=== PATIENT | female | born 1960 | race African-American/Black ===

== ENCOUNTER 2016-09-29 09:01 | Observation (INO) ==
[2016-09-29] MEDS ORDERED: ASPIRIN 325 MG TABLET PO STA (09:44)
--- NOTE | 2016-09-29 09:46 | EKG Report ---
Stationary ECG Study [facility] ER Test Date: 09/29/2016 9:09:08 AM Pat Name: BERTHA GRIDER Department: Room: Gender: F Medication Technician: Lindsey Dalton : 1960 Requested by: Felix Morrison Order Number: [id number] Reading MD: EVELIN WEST Intervals [place] Rate: 60 P: 48 ME: 191 QRS: 47 QRSD: 85 T: 43 QT: 415 QTc: 415 Interpretive Statements SINUS RHYTHM Electronically Signed On 10-01-16 16:32:28 CDT by EVELIN WEST [email or web address]
[2016-09-29 09:51] LABS: Basophils % 0.6 % (0.0-0.8); Eosinophils % 1.1 % (0.00-10.9); Hematocrit 42.4 VOL% (35.7-47.0); Hemoglobin 13.9 GM/DL (12.0-16.0); Lymphocytes # 1.7 10*3/uL (1.4-4.0); Lymphocytes % 47.4 % (21.3-54.2); Mean Corpuscular HGB Conc 32.8 GM/DL (32-36); Mean Corpuscular Hemoglobin 28 PG (27-34); Mean Corpuscular Volume 86.2 FL (87-102); Mean Platelet Volume 10.2 FL (9.6-12.0); Monocytes # 0.4 10*3/uL (0.11-0.8); Monocytes % 11.9 % (1.7-12.7); Neutrophils # 1.4 10*3/uL (1.4-7.4); Platelet Count 368 T/CUMM (130-400); Red Blood Count 4.92 MC/CUMM (3.8-5.5); Red Cell Distribution Width 13.5 % (9.3-17.3); White Blood Count 3.5 T/CUMM (4-12)
[2016-09-29] MEDS ORDERED: ASPIRIN 325 MG TABLET ONE (09:55)
[2016-09-29] MEDS ORDERED: NITROGLYCERIN SL 0.4 MG TABLET SL ONE ×3 (10:02→10:22)
[2016-09-29] MEDS: NITROGLYCERIN SL 0.4 MG TABLET SL PRN ×3 (10:06→10:23)
[2016-09-29 10:10] LABS: Calcium 10.9 MG/DL (8.5-10.1); Osmolality,Calculated 271.8 MOS/KG (273-304); Potassium 3.8 MMOL/L (3.5-5.1)
--- NOTE | 2016-09-29 10:38 | XRay Report ---
XR chest 1V portable Indication: Chest pain. Chest one view: No comparison. Heart size and mediastinal contour are normal. Lungs are hypoinflated but generally clear, except for minimal bibasilar atelectasis. Pleural spaces are clear. Bones are intact. Impression: Mild pulmonary hypoinflation with atelectasis. PROCEDURE INTERPRETED AT [facility] DEPARTMENT OF RADIOLOGY Final Report Signed by: Xavier Larson M.D.
--- NOTE | 2016-09-29 10:57 | EKG Report ---
Stationary ECG Study [facility] ER Test Date: 09/29/2016 10:55:32 AM Pat Name: BERTHA GRIDER Department: Room: Gender: F Fingernail Technician: : 1960 Requested by: Felix Morrison Order Number: [id number] Reading MD: EVELIN WEST Intervals [place] Rate: 61 P: 30 CA: 194 QRS: 54 QRSD: 83 T: 20 QT: 439 QTc: 442 Interpretive Statements SINUS RHYTHM ST DEVIATION AND MODERATE T-WAVE ABNORMALITY Electronically Signed On 10-01-16 16:33:19 CDT by EVELIN WEST [email or web address]
[2016-09-29] MEDS ORDERED: ENOXAPARIN 100 MG/ML SYRINGE SUBCUT STA (11:03)
[2016-09-29] MEDS ORDERED: ENOXAPARIN 100 MG/ML SYRINGE SUBCUT ONE (11:04)
--- NOTE | 2016-09-29 11:06 | Emergency Department Note ---
Mickey Dugan Brittany, am scribing for, and in the presence of, Abraham Aguirre MD 09:40. Timothy Dugan Doug C, MD, personally performed the services described in this documentation, ascribed by Kerry Arevalo in my presence, and it is both accurate and complete . Arrival - Arrival Chief Complaint: Chest Pain Stated Complaint: chest pain ED Nursing Triage Note: Pt c/o Chest pain, SOB, nausea, cough, sinus drainage, and horsness since yesterday. Mode of Arrival: Ambulatory Limitations: No Limitations Source: Patient, RN Notes Reviewed - History of Present Illness HPI Narrative: Patient 56-year-old black female presents emergency room complaining of substernal chest pain that started 3:00 yesterday while taking her groceries into the house. Patient states the pain is a sharp right-sided chest pain is worse with movement. She does have some shortness of breath and nausea and slight diaphoresis but no vomiting. She denies any neck shoulder arm discomfort associated with this. She has no history of heart disease but does have a family history of coronary artery disease. She states the pain has been fairly constant since yesterday afternoon. Patient given 1 nitroglycerin in the emergency room which seem to control her discomfort. Onset (ago): day(s) (1) Consistency: constant Severity: moderate Severity scale (1-10): 7 Quality: stabbing, sharp Allergies/Adverse Reactions: Allergies Allergy/AdvReac Type Severity Reaction Status Date / Time No Known Allergies Allergy Verified 09/29/16 09:05 Review of System - Review of System 12 point system: reviewed and no additional remarkable complaints except as stated - Review of System Constitutional: Present: diaphoresis. Absent: chills, fever Eyes: Absent: vision change Head/Ears/Nose/Throat: Absent: nasal drainage, sore throat Respiratory: Present: respiratory distress Cardiovascular: Present: chest pain Gastrointestinal: Present: nausea. Absent: abdominal pain, vomiting, diarrhea, constipation Genitourinary female: Absent: dysuria, frequency, urgency Musculoskeletal: Absent: arm pain, back pain, leg pain, neck pain Skin: Absent: rash Neurological: Absent: headache Psychiatric: Absent: anxiety, depression Hematological/Lymphatic: Absent: easy bleeding, easy bruising Medical,Surgical,& Family Hx - Medical History Cardio: History of: Hypertension Endocrine: History of: Dyslipidemia, Thyroid Disorder (HYPO) - Surgical History Reproductive Surgeries: Surgical HX of;: Hysterectomy (Total Hysterectomy) Orthopedic Surgeries: Surgical HX of;: Orthopedic Surgery (Torn Rotator Cuff), Spinal Surgery (Neck Fusion) - Family History Family History: Reports;: Family Heart Disease (father, mother, brother), Family Hypertension - Social History Smoking Status: Never smoker Exam Vital Signs: Vital Signs Temperature 97.0 F L 09/29/16 09:07 Pulse Rate 59 L 09/29/16 10:00 Respiratory Rate 16 09/29/16 10:00 Blood Pressure 148/99 09/29/16 10:00 O2 Sat by Pulse Oximetry 100 09/29/16 10:00 - General General appearance: alert, in no apparent distress - Head Head exam: Present: atraumatic, normocephalic, normal inspection - Eye Eye exam: Present: normal appearance, PERRL, EOMI - ENT ENT exam: Present: normal exam, normal oropharynx, mucous membranes moist - Neck Neck exam: Present: normal inspection, full ROM, trachea midline - Chest Chest inspection: Present: normal inspection, symmetric chest wall rise. Absent : tenderness (no chest wall tenderness) - Respiratory Respiratory exam: Present: normal lung sounds bilaterally. Absent: rales, rhonchi, wheezes - Cardiovascular Cardiovascular exam: Present: regular rate, normal rhythm, normal heart sounds. Absent: murmur, rubs, gallop - Abdominal Exam Abdominal exam: Present: soft, normal bowel sounds. Absent: distention, tenderness - Extremities Exam Extremities exam: Present: normal inspection - Back Exam Back exam: Present: normal inspection - Neurological Exam Neurological exam: Present: alert, oriented X3, CN II-XII intact. Absent: motor sensory deficit - Psychiatric Psychiatric exam: Present: normal affect, normal mood - Skin Skin exam: Present: warm, dry, intact, normal color Course Course Narrative: Patient was pain-free after sublingual nitroglycerin. EKG was repeated which revealed persistent T-wave inversion in V1 through V4. I discussed patient with Kellen who is covering the hospitalist service. She will arrange patient be seen and admitted to the hospitalist service. Results - Labs CBC & BMP: 09/29/16 09:20 09/29/16 09:20 Lab Results: I have reviewed the patients labs Labs: Laboratory Tests 09/29/16 09:20 WBC 3.5 L RBC 4.92 Hgb 13.9 Hct 42.4 MCV 86.2 L MCH 28 MCHC 32.8 RDW 13.5 Plt Count 368 MPV 10.2 Neut % (Auto) 39.0 Lymph % (Auto) 47.4 Ward % (Auto) 11.9 Eos % (Auto) 1.1 Baso % (Auto) 0.6 Neut # (Auto) 1.4 Lymph # (Auto) 1.7 Ward # (Auto) 0.4 Eos # (Auto) 0.0 Baso # (Auto) 0.0 Immature Gran % 0.0 Nucleated RBC % 0.0 Immature Gran # 0.00 Nucleated RBCs # 0.00 Laboratory Tests 09/29/16 09/29/16 09/29/16 09:20 09:20 09:20 D-Dimer, Quantitative <= 0.5 Sodium 137 Potassium 3.8 Chloride 104 Carbon Dioxide 27 Anion Gap 9.8 BUN 11 Creatinine 1.00 GFR Calculation 88 BUN/Creatinine Ratio 11.00 Glucose 98 Calculated Osmolality 271.8 L Calcium 10.9 H Magnesium Troponin I < 0.015 09/29/16 09:20 D-Dimer, Quantitative Sodium Potassium Chloride Carbon Dioxide Anion Gap BUN Creatinine GFR Calculation BUN/Creatinine Ratio Glucose Calculated Osmolality Calcium Magnesium 2.6 H Troponin I - EKG EKG results: interpreted by ERMJe, sinus rhythm (60 bpm) - Impressions T-wave inversion V1 through V4 - Diagnostic Findings Procedure: Chest x-ray: report reviewed by me (Mild pulmonary hypoinflation with atelectasis.) Disposition Clinical Impression: Chest pain Case discussed with: patient, patient's family Disposition: Still a Patient Condition: Stable Time of Disposition: 11:05
--- NOTE | 2016-09-29 12:28 | Hospitalist History & Physical ---
Assessment and Plan - Time spent with patient Time spent with patient: Less than 30 minutes (1) Chest pain Status: Acute Assessment and plan: Improved. Relieved with nitroglycerin, aspirin and oxygen. Patient will be admitted to telemetry for observation and cardiac workup. Will trend cardiac enzymes and repeat labs in a.m. Current Visit: Yes (2) Hypertension Status: Acute Assessment and plan: 167/99. Patient currently takes triamterene. Will continue home medications and continue monitoring overnight. Consider adding a calcium channel jareth or SWAPNIL inhibitor. Current Visit: Yes (3) Hypothyroidism Status: Acute Assessment and plan: Patient is followed by Dr. Eddy as an outpatient. Currently on Synthroid. Will continue home meds. Current Visit: Yes History of Present Illness Chief complaint: Chest pain History of present illness: Ms. Swanson is a 56 year old female with risk factors significant for hypertension, hyperlipidemia, hypothyroidism who presents to the ED today with complaints of chest pain since yesterday. The patient describes his pain as a "sharp" pain in her left chest and does not radiate. She rates his pain as a 7/ 10. She says that the pain was relieved with nitroglycerin, aspirin and oxygen given in the ER. She denies headache, palpitations, near syncope, pain on inspiration. She does report a past episode of chest pain that was thought to be musculoskeletal in origin and relieved with muscle relaxants. This pain today, however, is not reproducible to palpation. EKG on admission shows sinus rhythm with abnormal ST and T-wave activity with possible anterior ischemia. Chest x-ray shows mild pulmonary hypoinflation with atelectasis. The patient does report a history of mild to moderate edema and shortness of breath both at rest and on exertion. She currently takes triamterene for hypertension. She is followed by Dr. Eddy at [facility]. Preliminary lab work is unremarkable with troponin > 0.015. She will be admitted to telemetry for observation and chest pain rule out. Home Medications Medication Instructions Recorded Confirmed Type Amitriptyline HCl [Amitriptyline 25 mg PO BEDTIME PRN 09/29/16 09/29/16 History HCl] Aspirin EC Tab 81 mg PO QAM 09/29/16 09/29/16 History Ergocalciferol (Vitamin D2) 50,000 unit PO TU 09/29/16 09/29/16 History [Vitamin D2] Estradiol [Estradiol Tab] 2 mg PO QAM 09/29/16 09/29/16 History Hydrocodone/Acetaminophen 1 tablet PO TID 09/29/16 09/29/16 History [Hydrocodon-Acetaminophn 10-325] Levothyroxine Tab [Synthroid Tab] 125 mcg PO DAILY@0700 09/29/16 09/29/16 History Lovastatin [Lovastatin] 20 mg PO QAM 09/29/16 09/29/16 History Meloxicam 15 mg PO QAM 09/29/16 09/29/16 History Tizanidine HCl [Tizanidine HCl] 2 mg PO QAM 09/29/16 09/29/16 History Triamterene/Hydrochlorothiazid 1 capsule PO QAM 09/29/16 09/29/16 History [Triamterene-Hctz 37.5-25 mg Cp] Allergies Allergy/AdvReac Type Severity Reaction Status Date / Time No Known Allergies Allergy Verified 09/29/16 09:05 Medical,Surgical,& Family Hx - Medical History Cardio: History of: Hypertension Endocrine: History of: Dyslipidemia, Thyroid Disorder (HYPO) - Surgical History Reproductive Surgeries: Surgical HX of;: Hysterectomy (Total Hysterectomy) Orthopedic Surgeries: Surgical HX of;: Orthopedic Surgery (Torn Rotator Cuff), Spinal Surgery (Neck Fusion) - Family History Family History: Reports;: Family Heart Disease (father, mother, brother), Family Hypertension - Social History Smoking Status: Never smoker Frequency of Alcohol Use: None Type of Drug Use: None Marital Status: Lives With:: Spouse Functional capacity: independent ambulation - Constitutional Constitutional: Absent: fatigue, fever(s), frequent falls, headache(s), lethargy , weakness - EENT Eyes: Absent: blurry vision, loss of vision Ears: Absent: decreased hearing, ear pain Nose, mouth and throat: Absent: dysphagia, headache(s), neck pain, sinus pressure - Cardiovascular Cardiovascular: Present: chest pain at rest, dyspnea, dyspnea on exertion, edema. Absent: radiating jaw, neck or arm pain, orthopnea, palpitations - Respiratory Respiratory: Present: dyspnea on exertion. Absent: cough, hemoptysis, wheezing - Gastrointestinal Gastrointestinal: Present: abdominal pain. Absent: change in bowel habits, constipation, diarrhea, nausea - Genitourinary Genitourinary: Absent: difficulty urinating, dysuria - Musculoskeletal Musculoskeletal: Absent: back pain, joint swelling, limited range of motion - Neurological Neurological: Absent: abnormal gait, abnormal speech, behavioral changes, dizziness, numbness - Psychiatric Psychiatric: Absent: anxiety, confusion, difficulty concentrating - Endocrine Endocrine: Present: cold intolerance. Absent: fatigue, heat intolerance - Hematologic/Lymphatic Hematologic/Lymphatic: Absent: easy bleeding, easy bruising Exam - Constitutional Vitals: Period Temp Pulse Resp BP Sys/Gould Pulse Ox Last 24 Hr 55-61 16-16 146-167/86-99 100-100 Exam: General appearance: normal weight, no acute distress - Head Head exam: Present: normocephalic, atraumatic - Eye Eye exam: Present: EOMI. Absent: conjunctival injection, nystagmus Pupils: Present: EHRB, normal accommodation - ENT ENT exam: Present: normal exam, normal external ear exam - Neck Neck exam: Present: normal inspection. Absent: lymphadenopathy, tenderness, thyromegaly - Respiratory Respiratory exam: Present: clear to auscultation bilaterally. Absent: rales, rhonchi, wheezes - Cardiovascular Cardiovascular exam: Present: regular rate and rhythm. Absent: carotid bruit, gallop, rubs - GI/Abdominal GI/Abdominal exam: Present: normal bowel sounds. Absent: ascites, distended, mass - Extremities Exam Extremities exam: Present: normal inspection, normal capillary refill. Absent: edema - Back Exam Back exam: Absent: CVA tenderness (L), CVA tenderness (R) - Neurological Exam Neurological exam: Present: alert, oriented X3 - Psychiatric Psychiatric exam: Present: normal affect, normal mood - Skin Skin exam: Present: normal color, warm, dry Results - Labs CBC & BMP: 09/29/16 09:20 09/29/16 09:20 Lab Results: I have reviewed the past 24 hour labs - EKG EKG results: interpreted by YANY, sinus rhythm - Diagnostic Findings Procedure: Chest x-ray: image reviewed by me, report reviewed by me (atelectasis )
[2016-09-29] MEDS ORDERED: ZALEPLON 5 MG CAPSULE PO PRN (12:42)
[2016-09-29] MEDS ORDERED: ACETAMINOPHEN 325 MG TABLET PO PRN (12:42)
[2016-09-29] MEDS ORDERED: ONDANSETRON 4 MG/2 ML VIAL IV PRN (12:42)
[2016-09-29] MEDS ORDERED: BISACODYL 5 MG TABLET PO PRN (12:42)
[2016-09-29] MEDS ORDERED: MORPHINE 2 MG/1 ML SYRINGE IV PRN (12:42)
[2016-09-29] MEDS ORDERED: MAGNESIUM HYDROXIDE SUSP 30 ML UDCUP PO PRN (12:42)
[2016-09-29] MEDS ORDERED: AMITRIPTYLINE 25 MG TABLET PO PRN (12:48)
--- NOTE | 2016-09-29 13:16 | EKG Report ---
Stationary ECG Study [facility] Test Date: 09/29/2016 1:16 PM Pat Name: BERTHA GRIDER Department: Room: 285 Gender: F Laboratory Aide: EMELIA : 1960 Requested by: Felix Morrison Order Number: [id number] Reading MD: EVELIN WEST Intervals [place] Rate: 53 P: 32 NE: 191 QRS: 28 QRSD: 87 T: 60 QT: 442 QTc: 426 Interpretive Statements SINUS BRADYCARDIA MODERATE T-WAVE ABNORMALITY Electronically Signed On 10-01-16 16:35:25 CDT by EVELIN WEST [id number]
[2016-09-29 13:53] LABS: Risk Ratio 3.38; VLDL CHOLESTEROL 15.8 MG/DL
--- NOTE | 2016-09-29 15:14 | EKG Report ---
Stationary ECG Study [facility] Test Date: 09/29/2016 3:13:39 PM Pat Name: BERTHA GRIDER Department: Room: 285 Gender: F Records Section Supervisor: EMELIA : 1960 Requested by: Felix Morrison Order Number: [id number] Reading MD: EVELIN WEST Intervals [place] Rate: 57 P: 36 ID: 200 QRS: 36 QRSD: 85 T: 28 QT: 432 QTc: 427 Interpretive Statements SINUS RHYTHM Electronically Signed On 10-01-16 16:39:02 CDT by EVELIN WEST [email or web address]
[2016-09-29] MEDS: ALUMINUM/MAGNES/SIMETH MAX STR 30 ML UDCUP PO SCH (21:16)
[2016-09-30] MEDS: ALUMINUM/MAGNES/SIMETH MAX STR 30 ML UDCUP PO SCH ×3 (00:46→08:18)
[2016-09-30 05:43] LABS: Blood Urea Nitrogen 11 MG/DL (7-18); Glucose 108 MG/DL (74-106); Magnesium 2.9 MG/DL (1.8-2.4); Osmolality,Calculated 282.1 MOS/KG (273-304); Sodium 142 MMOL/L (136-145); Troponin I Only < 0.015 NG/ML (0.00-0.045)
[2016-09-30] MEDS: LEVOTHYROXINE 125 MCG TABLET PO SCH (06:08)
[2016-09-30] MEDS: ASPIRIN EC 325 MG TABLET PO SCH (08:19)
[2016-09-30] MEDS: TRIAMTERENE/HCTZ 37.5-25 MG CAPSULE PO SCH (08:25)
[2016-09-30] MEDS: MELOXICAM 7.5 MG TABLET PO SCH (08:25)
[2016-09-30] MEDS: ESTRADIOL 2 MG TABLET PO SCH (08:26)
[2016-09-30] MEDS: tiZANidine 4 MG TABLET PO SCH (08:26)
[2016-09-30] MEDS ORDERED: LOVASTATIN 20 MG TABLET PO SCH (09:00)
[2016-09-30] MEDS: METOPROLOL TARTRATE 25 MG TABLET PO SCH ×2 (13:00→21:31)
[2016-09-30] MEDS ORDERED: POTASSIUM CHLORIDE RIDER 10 MEQ in PREMIX 1 EACH IV PRN ×2 (13:01→17:37)
[2016-09-30] MEDS ORDERED: MAGNESIUM SULF RIDER 2 GM in PREMIX 1 EACH IV PRN ×2 (13:01→17:37)
--- NOTE | 2016-09-30 13:05 | Cardiology Consult Note ---
Assessment and Plan (1) Chest pain Status: Acute Assessment and plan: 56-year-old black female, presenting with chest pain, anterior EKG changes, suggestive of unstable angina. Hypertension, hyperlipidemia, positive family history for CAD, hypothyroidism. -Continue aspirin. -Start metoprolol 25 mg twice daily. -Start full dose Lovenox. -PPI -LDL 175 despite lovastatin. Switch to Crestor 40 mg nightly. -BS normal -Check TSH/FT4 in Am. Cont Synthroid -Keep on telemetry. -Echo -Blood pressure, heart rate well controlled. -We discussed risks and benefits of management options for unstable angina. Moderate risk presentation. N.p.o. after midnight. We will plan to proceed with cardiac catheterization in a.m. Current Visit: Yes (2) Hypertension Status: Acute Current Visit: Yes (3) Hypothyroidism Status: Acute Current Visit: Yes History of Present Illness - Data of Consult Patient: new to practice Consult date: 09/30/16 - Consult Narrative Reason for consult: UA History of present illness: Ms. Swanson is a 56 year old BF. She developed sudden onset, moderate to severe retrosternal pressure-like chest pain, while performing light activity. She came to the emergency room for evaluation. Aspirin and nitroglycerin did resolve the pain. Initially EKG showed sinus rhythm, nonspecific report changes. Repeat EKG showed anterior T-wave inversion. She is pain-free now, cardiac biomarkers is negative. She has hypertension hyperlipidemia, which is treated by her primary care physician. She had mild chest pains in the past, but because of the first presentation of such as severe chest pain for her. No leg swelling, denies any drug or alcohol abuse. She is not a smoker. Her father had a heart attack in his 60s, he was a smoker. She has depression, well controlled. Mild arthritic pain. No history of bleeding problems. She had 2 pregnancies, both were premature. Hypothyroidism treated with Synthroid. D-dimer was negative. Renal function normal. CC: Liu Salas MD - Home Medications and Allergies Home Medications: Home Medications Medication Instructions Recorded Confirmed Type Amitriptyline HCl [Amitriptyline 25 mg PO BEDTIME PRN 09/29/16 09/29/16 History HCl] Aspirin EC Tab 81 mg PO QAM 09/29/16 09/29/16 History Ergocalciferol (Vitamin D2) 50,000 unit PO TU 09/29/16 09/29/16 History [Vitamin D2] Estradiol [Estradiol Tab] 2 mg PO QAM 09/29/16 09/29/16 History Hydrocodone/Acetaminophen 1 tablet PO TID 09/29/16 09/29/16 History [Hydrocodon-Acetaminophn 10-325] Levothyroxine Tab [Synthroid Tab] 125 mcg PO DAILY@0700 09/29/16 09/29/16 History Lovastatin [Lovastatin] 20 mg PO QAM 09/29/16 09/29/16 History Meloxicam 15 mg PO QAM 09/29/16 09/29/16 History Tizanidine HCl [Tizanidine HCl] 2 mg PO QAM 09/29/16 09/29/16 History Triamterene/Hydrochlorothiazid 1 capsule PO QAM 09/29/16 09/29/16 History [Triamterene-Hctz 37.5-25 mg Cp] Allergies/Adverse Reactions: Allergies Allergy/AdvReac Type Severity Reaction Status Date / Time No Known Allergies Allergy Verified 09/29/16 09:05 12 point system: reviewed and no additional remarkable complaints except as stated Medical,Surgical,& Family Hx - Medical History Cardio: History of: Hypertension Psychological: History of: Anxiety Disorders Neurology: History of: Migraine Endocrine: History of: Dyslipidemia, Thyroid Disorder (HYPO) Musculoskeletal: History of: Back/Neck Problems, Herniated Disk No history of: Amputation Hematology: History of: Anemia - Surgical History Cardiac Surgeries: Patient Denies: Cardiac Catheterization Thoracic Surgeries: Patient denies;: Lobectomy Neurologic Surgeries: Patient denies: Neurologic Surgery Abdominal Surgeries: Patient denies: Abdominal Surgery Reproductive Surgeries: Surgical HX of;: Gynecologic Surgery, Hysterectomy ( Total Hysterectomy) Orthopedic Surgeries: Surgical HX of;: Orthopedic Surgery (Torn Rotator Cuff), Spinal Surgery (Neck Fusion) - Family History Family History: Reports;: Family Heart Disease (father, mother, brother), Family Hypertension - Social History Smoking Status: Never smoker Frequency of Alcohol Use: None Type of Drug Use: None Physical Examination Vital Signs Temp Pulse Resp BP Pulse Ox 97.0 F L 68 18 169/110 100 09/29/16 09:07 09/29/16 09:07 09/29/16 09:07 09/29/16 09:07 09/29/16 09:07 General: Present: Appears Well, No Apparent Distress HEENT: Present: Normocephaly, Mucus Membranes Moist Neck: Present: Supple Neck, No JVD/HJR Cardiac: Present: Reg Rate and Rhythm, No Murmur Lungs: Present: Clear Ascult./Percussion, No Wheezes, No Rales, No Rhonchi Neuro: Present: Grossly Intact Abdomen: Present: Soft, Active Bowel Sounds Skin: Present: Clear. Absent: Ulceration Extremities: Present: No Clubbing, No Cyanosis, No Edema Result/EKG - Labs CBC & BMP: 09/29/16 09:20 09/30/16 04:45 Lab Results: I have reviewed the past 24 hour labs Labs: Laboratory Results - last 24 hr 09/29/16 09/29/16 09/29/16 13:08 13:08 15:34 Sodium Potassium Chloride Carbon Dioxide Anion Gap BUN Creatinine GFR Calculation BUN/Creatinine Ratio Glucose Calculated Osmolality Calcium Magnesium Total Creatine Kinase Troponin I < 0.015 < 0.015 Triglycerides 79 Cholesterol 267 H LDL Cholesterol 175.0 VLDL Cholesterol 15.8 HDL Cholesterol 79 H Heart Disease Risk Ratio 3.38 09/30/16 04:45 Sodium 142 Potassium 4.0 Chloride 107 Carbon Dioxide 29 Anion Gap 10.0 BUN 11 Creatinine 0.90 GFR Calculation 100 BUN/Creatinine Ratio 12.00 Glucose 108 H Calculated Osmolality 282.1 Calcium 11.0 H Magnesium 2.9 H Total Creatine Kinase 55 Troponin I < 0.015 Triglycerides Cholesterol LDL Cholesterol VLDL Cholesterol HDL Cholesterol Heart Disease Risk Ratio - EKG EKG results: interpreted by me Quality Measures - Stroke Symptom Onset Unknown: No
[2016-09-30] MEDS: PANTOPRAZOLE 40 MG TABLET PO SCH (14:10)
[2016-09-30] MEDS: ENOXAPARIN 100 MG/ML SYRINGE SUBCUT SCH (14:12)
--- NOTE | 2016-09-30 14:25 | Hospitalist Progress Note ---
Assessment and Plan (1) Chest pain Status: Acute Assessment and plan: The patient will have coronary arteriogram tomorrow morning. Current Visit: Yes Qualifiers: Chest pain type: precordial pain Qualified Code(s): R07.2 - Precordial pain (2) Hypertension Status: Chronic Current Visit: Yes Qualifiers: Hypertension type: essential hypertension Qualified Code(s): I10 - Essential (primary) hypertension (3) Hypothyroidism Status: Chronic Current Visit: Yes Qualifiers: Hypothyroidism type: acquired Qualified Code(s): E03.9 - Hypothyroidism, unspecified Hospitalist: Subjective Interval history: The patient had no further chest pressure overnight. Troponin values are normal. Cardiology consult recommends arteriogram tomorrow morning. Exam - Constitutional Vitals: Period Temp Pulse Resp BP Sys/Gould Pulse Ox Last 24 Hr 97.1 F-98.5 F 54-65 16-20 116-141/58-76 97-100 General appearance: no acute distress - Respiratory Respiratory exam: Present: clear to auscultation bilaterally - Cardiovascular Cardiovascular exam: Present: regular rate and rhythm - GI/Abdominal GI/Abdominal exam: Present: normal bowel sounds Results - Labs CBC & BMP: 09/29/16 09:20 09/30/16 04:45 Lab Results: I have reviewed the past 24 hour labs Quality Measures - Stroke Symptom Onset Unknown: No
--- NOTE | 2016-09-30 17:32 | ECHO Report ---
Madeleine Swanson Exam Date: 09/30/2016 13:38 Referring Physician: Technologist: Hoda Lopez RDCS Age: 56 Ht (in): 67 Wt (lb): 210 Gender: F Exam Location: [facility] Echo Indications: Chest pain, unspecified, Anterior ecg changes, Essential (primary) hypertension, Hyperlipidemia, unspecified BP: 128 / 65 HR: 55 Rhythm: Sinus Technical Quality: IMPRESSIONS Technically limited study. Normal left ventricular size, without hypertrophy, with grossly normal systolic function. Estimated left ventricular ejection fraction 60%. Normal diastolic function. MEASUREMENTS (Male / Female) Normal Values 2D ECHO LV Diastolic Diameter PLAX 4.0 cm 4.2 - 5.9 / 3.9 - 5.3 cm LV Systolic Diameter PLAX 2.7 cm LV Fractional Shortening PLAX 34.0 % IVS Diastolic Thickness 1.1 cm 0.6 - 1.0 / 0.6 - 0.9 cm LVPW Diastolic Thickness 1.1 cm 0.6 - 1.0 / 0.6 - 0.9 cm RV Internal Dim ED PLAX 3.3 cm Aortic Root Diameter 3.1 cm LA Systolic Diameter LX 3.4 cm 3.0 - 4.0 / 2.7 - 3.8 cm DOPPLER TR Peak Velocity 251.0 cm/s TR Peak Gradient 25.2 mmHg FINDINGS Left Ventricle Normal left ventricular size, without hypertrophy, with grossly normal systolic function. Estimated left ventricular ejection fraction 60%. Normal diastolic function. Right Ventricle The right ventricle is normal in size and function. Right Atrium The right atrium is normal in size. Left Atrium The left atrium is normal in size. Mitral Valve Morphologically normal mitral valve without significant stenosis or prolapse. There is no mitral regurgitation. Aortic Valve Morphologically normal aortic valve without significant sclerosis or stenosis. There is no aortic regurgitation. Tricuspid Valve Morphologically normal tricuspid valve. Trace to mild tricuspid valve regurgitation. Tricuspid regurgitation velocities suggest a PAP of 35 mmHg. Pulmonic Valve Morphologically normal pulmonic valve. Trace pulmonary valve regurgitation. Pericardium Normal pericardium without effusion. Aorta Normal ascending aorta dimension. Gilbert Hannon (Electronically Signed) Final Date: 30 September 2016 17:28
[2016-09-30] MEDS ORDERED: DIAZEPAM 5 MG TABLET PO ONE (17:37)
[2016-09-30] MEDS ORDERED: diphenhydrAMINE CAP 25 MG CAPSULE PO ONE (17:37)
--- NOTE | 2016-09-30 17:40 | History and Physical Update ---
Sedation H&P Update - History and Physical H&P was reviewed, the patient examined and there: are no changes in the patients condition since last H&P was completed. (No bleeding in the pt's bowels , urine, or coughing up blood. No planned surgery for the next year. No contraindication to anticoagulation for a year.) - Dictation Physical: refer to scanned H&P - Physical Exam Mental Status: alert and oriented Heart: regular rate and rhythm Lung: clear to auscultation Abdomen: within normal limits Vitals: within normal limits (Bilateral femoral pulses are 3-4+. Foot pulses are 2+.) - Sedation Plan for Sedation: minimal Patient Consent: Procedure disscussed with patient and patinet has consented., Risks and benefits were discussed with patient,including infection,, bleeding, injury to surrounding structures, seizure, temporary nerve, Patient understands and accepts potential risks/benefits and agrees to (Left heart cath and possible PTCA or stent were discussed with the patient. The risk of the procedure include but are not limited to a small risk of injury to the vessel, abnormal heart rhythm, stroke, heart attack, need for emergent surgery, contrast reaction, restenosis, or . The patient voices understanding, agrees with the plan, and desires to proceed with the heart catheterization.), proceed. ASA Class: II Airway Assessment: Class II: Soft palate, uvula, fauces visible
[2016-09-30] MEDS: ROSUVASTATIN 20 MG TABLET PO SCH (21:31)
[2016-09-30] MEDS: SODIUM CHLORIDE 0.9% 1,000 ML IV SCH (21:54)
[2016-10-01] MEDS: ENOXAPARIN 100 MG/ML SYRINGE SUBCUT SCH ×3 (02:03→21:57)
[2016-10-01 04:43] LABS: Eosinophils # 0.1 10*3/uL (0.0-0.87); Hematocrit 37.8 VOL% (35.7-47.0); Hemoglobin 12.5 GM/DL (12.0-16.0); Immature Granulocytes % 0.3 %; Immature Granulocytes Absolute 0.01 #; Lymphocytes # 2.1 10*3/uL (1.4-4.0); Lymphocytes % 53.3 % (21.3-54.2); Mean Corpuscular HGB Conc 33.1 GM/DL (32-36); Mean Corpuscular Hemoglobin 28 PG (27-34); Mean Corpuscular Volume 84.4 FL (87-102); Mean Platelet Volume 10.6 FL (9.6-12.0); Monocytes # 0.4 10*3/uL (0.11-0.8); Monocytes % 9.6 % (1.7-12.7); Neutrophils # 1.3 10*3/uL (1.4-7.4); Neutrophils % 33.8 % (38.7-73.9); Platelet Count 331 T/CUMM (130-400); Red Blood Count 4.48 MC/CUMM (3.8-5.5); Red Cell Distribution Width 13.4 % (9.3-17.3)
[2016-10-01 05:12] LABS: Eosinophils 1 % (0-10); Hypochromasia 1+; Lymphocytes 56 % (20-55); Platelet Estimate Adequate; Segmented Neutrophils 32 % (50-85); Total Cells Counted 100
[2016-10-01 05:15] LABS: Calcium 10.4 MG/DL (8.5-10.1); Magnesium 2.7 MG/DL (1.8-2.4); Osmolality,Calculated 279.3 MOS/KG (273-304); Potassium 3.9 MMOL/L (3.5-5.1)
[2016-10-01 05:24] LABS: Free T4 (Free Thyroxine) 1.1 NG/DL (0.76-1.46); Thyroid Stimulating Hormone 2.19 uIU/ml (0.358-3.74)
[2016-10-01] MEDS: LEVOTHYROXINE 125 MCG TABLET PO SCH (06:04)
--- NOTE | 2016-10-01 07:22 | EKG Report ---
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
[2016-10-01] MEDS: MELOXICAM 7.5 MG TABLET PO SCH (08:58)
[2016-10-01] MEDS: tiZANidine 4 MG TABLET PO SCH (08:58)
[2016-10-01] MEDS: PANTOPRAZOLE 40 MG TABLET PO SCH (09:01)
[2016-10-01] MEDS: ESTRADIOL 2 MG TABLET PO SCH (09:01)
[2016-10-01] MEDS: METOPROLOL TARTRATE 25 MG TABLET PO SCH ×2 (09:01→21:50)
[2016-10-01] MEDS: SODIUM CHLORIDE 0.9% 1,000 ML IV SCH (09:02)
[2016-10-01] MEDS: ASPIRIN EC 325 MG TABLET PO SCH (09:02)
[2016-10-01] MEDS: TRIAMTERENE/HCTZ 37.5-25 MG CAPSULE PO SCH (09:02)
[2016-10-01] MEDS ORDERED: DIAZEPAM 5 MG TABLET ONE (11:00)
[2016-10-01] MEDS ORDERED: diphenhydrAMINE CAP 25 MG CAPSULE ONE (11:01)
[2016-10-01] MEDS ORDERED: LIDOCAINE 1% 20 ML VIAL ONE (11:31)
[2016-10-01] MEDS ORDERED: MEPERIDINE 25 MG/1 ML VIAL ONE (11:31)
[2016-10-01] MEDS ORDERED: MIDAZOLAM 2 MG/2 ML VIAL ONE (11:31)
[2016-10-01] MEDS ORDERED: HYDROmorphone 2 MG/1 ML VIAL ONE (12:13)
--- NOTE | 2016-10-01 12:32 | Operative Note ---
Date of procedure: 10/01/16 Procedure Preformed: Left heart cath Coronary angiography Left ventriculography Angiogram of the right femoral artery. Angio-Seal of the right femoral artery-successful Surgeon / Physician: Douglas Felix Rotary Drill Operator: Jim Duff Post-op diagnosis: same (Chest pain consistent with unstable angina and anterior ischemic appearing EKG changes.) Findings: Impression: No significant obstructive coronary disease-minimal luminal irregularities Mild to moderate distal vessel tortuosity Probably left dominant or possibly codominant coronary arterial system Normal global/regional LV systolic function, LVEF greater than 55% Moderate elevation of LVEDP, 20 mmHg Angiogram of the right femoral artery-via follow-through from the LV gram Successful Angio-Seal of the right femoral artery Plan/recommendations: The patient will have risk factors optimized. Based on this study, it appears the patient's chest pain and EKG changes are not due to fixed, obstructive coronary disease. It is possible coronnary spasm or thrombosis, but may be the EKG changes were not as specific as what was thought. The patient will be on antiplatelet medications to include aspirin indefinitely . Attempts at controlling blood pressure optimally and treating lipids with a statin will be made. That would slow down any new disease. Follow-up with Dr. Hurtado will be scheduled. Addenda: I saw the patient post-cath. the groin puncture site and distal pulse are stable. vital signs are stable and the patient will be observed closely overnight. Specimens: none sent Estimated blood loss: minimal Condition: stable Anesthesia: local, conscious sedation Disposition: floor
--- NOTE | 2016-10-01 13:51 | Cardiology Progress Note ---
Cardiology - PN: Subj Interval history: Cardiology note Cardiac cath findings reviewed. Minimal CAD. Ejection fraction 55%. Right groin soft and dry. No bruit or hematoma. Distal pulses 2+. Recent echo showed ejection fraction of 60% with normal left atrial size, aortic valve sclerosis, mild TR PA pressure 35 Impression Noncardiac chest pain Patent coronaries EF 55% Hypertension Hypercholesteremia Plan Routine groin precautions discussed Medical therapy/cardioprotection Home in a.m. Exam (Progress Note) - Constitutional Vitals: Period Temp Pulse Resp BP Sys/Gould Pulse Ox Last 24 Hr 97.7 F-98.6 F 47-61 14-20 111-144/58-73 20-100 Result/EKG - Labs CBC & BMP: 10/01/16 04:16 10/01/16 04:16 Labs: Laboratory Results - last 24 hr 10/01/16 10/01/16 10/01/16 04:16 04:16 04:16 WBC 4.0 RBC 4.48 Hgb 12.5 Hct 37.8 MCV 84.4 L MCH 28 MCHC 33.1 RDW 13.4 Plt Count 331 MPV 10.6 Neut % (Auto) 33.8 L Lymph % (Auto) 53.3 [place] % (Auto) 9.6 Eos % (Auto) 2.0 Baso % (Auto) 1.0 H Neut # (Auto) 1.3 L Lymph # (Auto) 2.1 [place] # (Auto) 0.4 Eos # (Auto) 0.1 Baso # (Auto) 0.0 Total Counted 100 Immature Gran % 0.3 Nucleated RBC % 0.0 Immature Gran # 0.01 Segmented Neutrophils 32 L Lymphocytes 56 H Monocytes 10 Eosinophils 1 Basophils 1.0 H Nucleated RBCs # 0.00 Platelet Estimate Adequate Hypochromasia 1+ Morphology Comment Sodium 141 Potassium 3.9 Chloride 108 H Carbon Dioxide 26 Anion Gap 10.9 BUN 10 Creatinine 0.90 GFR Calculation 100 BUN/Creatinine Ratio 11.00 Glucose 101 Calculated Osmolality 279.3 Calcium 10.4 H Magnesium 2.7 H Free T4 1.10 TSH 3rd Generation 2.190 Quality Measures - VTE Contraindication to Pharmacological VTE Prophylaxis: High Risk of Bleeding - Stroke Symptom Onset Unknown: No
--- NOTE | 2016-10-01 16:07 | Hospitalist Progress Note ---
Assessment and Plan (1) Chest pain Status: Acute Assessment and plan: Non-cardiac in origin. Will ensure that patient is on a PPI as additional symptoms noted on eval today coincide with probable reflux disease. BP has been stable. Will keep overnight to monitor angio site and plan for discharge in the morning. Current Visit: Yes Qualifiers: Chest pain type: precordial pain Qualified Code(s): R07.2 - Precordial pain (2) Hypertension Status: Chronic Current Visit: Yes Qualifiers: Hypertension type: essential hypertension Qualified Code(s): I10 - Essential (primary) hypertension (3) Hypothyroidism Status: Chronic Current Visit: Yes Qualifiers: Hypothyroidism type: acquired Qualified Code(s): E03.9 - Hypothyroidism, unspecified Hospitalist: Subjective Interval history: Patient is currently S/P cardiac cath with normal coronaries noted. EF 55%. Patient denies having any further episodes of chest pain. No n/v. Exam - Constitutional Vitals: Period Temp Pulse Resp BP Sys/Gould Pulse Ox Last 24 Hr 97.7 F-98.6 F 47-61 12-20 98-144/55-90 20-100 General appearance: over weight - Head Head exam: Present: normal inspection, normocephalic, atraumatic - Eye Eye exam: Present: EOMI - Neck Neck exam: Present: normal inspection - Respiratory Respiratory exam: Present: clear to auscultation bilaterally. Absent: rhonchi, wheezes - Cardiovascular Cardiovascular exam: Present: regular rate and rhythm - GI/Abdominal GI/Abdominal exam: Present: normal bowel sounds, soft. Absent: tenderness - Extremities Exam Extremities exam: Present: normal inspection. Absent: edema - Neurological Exam Neurological exam: Present: alert, oriented X3, CN II-XII intact - Psychiatric Psychiatric exam: Present: normal affect, normal mood Results - Labs CBC & BMP: 10/01/16 04:16 10/01/16 04:16 Quality Measures - VTE Contraindication to Pharmacological VTE Prophylaxis: High Risk of Bleeding - Stroke Symptom Onset Unknown: No
--- NOTE | 2016-10-01 21:28 | Cardiology Operative Report ---
Date of Procedure:: 10/01/16 Post-op diagnosis: same (Chest pain consistent with unstable angina and anterior ischemic appearing EKG changes.) Procedure: Date of procedure: 10/01/16 Procedure Preformed: Left heart cath Coronary angiography Left ventriculography Angiogram of the right femoral artery. Angio-Seal of the right femoral artery-successful Surgeon / Physician: Douglas Felix Fish Receiver: Jim Duff Post-op diagnosis: same (Chest pain consistent with unstable angina and anterior ischemic appearing EKG changes.) procedure: The patient was prepped and draped in usual manner. Entered the right femoral artery via the Seldinger technique. I used a sheath and then used a JL4 and engaged left coronary. Multiple views were taken. I then exchanged for a JR4. Multiple views of the right coronary were taken. I then exchanged for an angled pigtail. I crossed the valve. Left ventricular end-diastolic pressures measured. Left ventriculography was done. Left ventricle pullback was done. The catheters were then removed from the patient. Please see the cath data sheets for the details of catheters used. Complications: None Hemodynamic data: LVEDP was 20 mmHg. Angiographic data: The left main coronary was large and had minimal luminal irregularities. The left anterior descending artery was large, it was one major diagonal infusion of onset of perforation. There are minimal luminal irregularities in this vessel. The left circumflex system was moderate to large. there are minimal luminal irregularities in the circumflex The right coronary artery was small in size, codominant vessel with the PDA. There are minimal luminal regularity in the right coronary. All 3 vessels have mild to moderate distal vessel tortuosity. ALVAREZ left ventriculography revealed normal global/regional left ventricular systolic function. Overall ejection fraction was at least 55%. There is no significant mitral regurgitation. Angiogram of the right femoral artery revealed the puncture site to be in a large vessel, above the bifurcation. It was suitable for Angio-Seal. Findings: Impression: No significant obstructive coronary disease-minimal luminal irregularities Mild to moderate distal vessel tortuosity Probably left dominant or possibly codominant coronary arterial system Normal global/regional LV systolic function, LVEF greater than 55% Moderate elevation of LVEDP, 20 mmHg Angiogram of the right femoral artery-via follow-through from the gram Successful Angio-Seal of the right femoral artery Plan/recommendations: The patient will have risk factors optimized. Based on this study, it appears the patient's chest pain and EKG changes are not due to fixed, obstructive coronary disease. It is possible coronnary spasm or thrombosis, but may be the EKG changes were not as specific as what was thought. The patient will be on antiplatelet medications to include aspirin indefinitely . Attempts at controlling blood pressure optimally and treating lipids with a statin will be made. That would slow down any new disease. Follow-up with Dr. Hurtado will be scheduled. Addenda: I saw the patient post-cath. the groin puncture site and distal pulse are stable. vital signs are stable and the patient will be observed closely overnight. Specimens: none sent Estimated blood loss: minimal Condition: stable Anesthesia: local, conscious sedation Disposition: floor Anesthesia: local, minimal conscious sedation Surgeon / Physician: Douglas Felix Fish Receiver: other Estimated blood loss: minimal Specimens: none sent Condition: stable Disposition: floor
[2016-10-01] MEDS: ROSUVASTATIN 20 MG TABLET PO SCH (21:52)
[2016-10-02 04:45] LABS: Basophils % 0.7 % (0.0-0.8); Hematocrit 37.4 VOL% (35.7-47.0); Hemoglobin 12.3 GM/DL (12.0-16.0); Immature Granulocytes % 0.5 %; Immature Granulocytes Absolute 0.02 #; Lymphocytes # 1.6 10*3/uL (1.4-4.0); Mean Corpuscular HGB Conc 32.9 GM/DL (32-36); Mean Corpuscular Hemoglobin 28 PG (27-34); Mean Corpuscular Volume 85.4 FL (87-102); Mean Platelet Volume 10.7 FL (9.6-12.0); Monocytes # 0.4 10*3/uL (0.11-0.8); Monocytes % 9.3 % (1.7-12.7); Neutrophils # 2.1 10*3/uL (1.4-7.4); Neutrophils % 49.5 % (38.7-73.9); Platelet Count 327 T/CUMM (130-400); Red Blood Count 4.38 MC/CUMM (3.8-5.5); Red Cell Distribution Width 13.4 % (9.3-17.3); White Blood Count 4.2 T/CUMM (4-12)
[2016-10-02 05:19] LABS: Calcium 10.5 MG/DL (8.5-10.1); Magnesium 2.5 MG/DL (1.8-2.4); Potassium 4.2 MMOL/L (3.5-5.1)
[2016-10-02] MEDS: LEVOTHYROXINE 125 MCG TABLET PO SCH (07:23)
[2016-10-02] MEDS ORDERED: ASPIRIN EC 81 MG TABLET PO SCH (09:00)
[2016-10-02] MEDS: TRIAMTERENE/HCTZ 37.5-25 MG CAPSULE PO SCH (10:02)
[2016-10-02] MEDS: ESTRADIOL 2 MG TABLET PO SCH (10:03)
[2016-10-02] MEDS: PANTOPRAZOLE 40 MG TABLET PO SCH (10:03)
[2016-10-02] MEDS: METOPROLOL TARTRATE 25 MG TABLET PO SCH (10:04)
[2016-10-02] MEDS: MELOXICAM 7.5 MG TABLET PO SCH (10:06)
[2016-10-02] MEDS: ENOXAPARIN 100 MG/ML SYRINGE SUBCUT SCH (10:07)
[2016-10-02] MEDS: tiZANidine 4 MG TABLET PO SCH (10:14)
--- NOTE | 2016-10-02 11:22 | Discharge Summary ---
Hospital Course - Hospital Course Hospital Course: 56 yo female with history of hypertension presenting with prolonged chest pain without associated ECG nor cardiac biomarker reactivity. Left heart catheterization was completed 01 October with normal LV systolic performance and normal coronary angiography. Discharge Plan - Discharge Data Disposition: Disch To Home/Self Care Condition at Discharge: Stable Discharge Diet: advance to your usual diet Activity: resume usual activities as tolerated - Discharge Medications Continue Aspirin EC Tab 81 mg PO QAM Levothyroxine Tab [Synthroid Tab] 125 mcg PO DAILY@0700 Triamterene/Hydrochlorothiazid [Triamterene-Hctz 37.5-25 mg Cp] 1 capsule PO QAM Meloxicam 15 mg PO QAM Lovastatin 20 mg PO QAM Estradiol [Estradiol Tab] 2 mg PO QAM Ergocalciferol (Vitamin D2) [Vitamin D2] 50,000 unit PO TU Hydrocodone/Acetaminophen [Hydrocodon-Acetaminophn 10-325] 1 tablet PO TID Tizanidine HCl 2 mg PO QAM Amitriptyline HCl 25 mg PO BEDTIME PRN PRN Reason: Sleep - Follow Up or Referral - Forms/Instructions Exam - Constitutional Vitals: Period Temp Pulse Resp BP Sys/Gould Pulse Ox Last 24 Hr 96.4 F-97.9 F 47-65 12-18 95-129/47-90 93-100 Discharge Results Labs on day of discharge: Labs from last 24 hours 10/02/16 10/02/16 04:01 04:01 WBC 4.2 RBC 4.38 Hgb 12.3 Hct 37.4 MCV 85.4 L MCH 28 MCHC 32.9 RDW 13.4 Plt Count 327 MPV 10.7 Neut % (Auto) 49.5 Lymph % (Auto) 39.0 [place] % (Auto) 9.3 Eos % (Auto) 1.0 Baso % (Auto) 0.7 Neut # (Auto) 2.1 Lymph # (Auto) 1.6 [place] # (Auto) 0.4 Eos # (Auto) 0.0 Baso # (Auto) 0.0 Immature Gran % 0.5 Nucleated RBC % 0.0 Immature Gran # 0.02 Nucleated RBCs # 0.00 Sodium 143 Potassium 4.2 Chloride 108 H Carbon Dioxide 25 Anion Gap 14.2 BUN 8 Creatinine 0.80 GFR Calculation 116 BUN/Creatinine Ratio 10.00 Glucose 93 Calculated Osmolality 282.0 Calcium 10.5 H Magnesium 2.5 H DS: Provider Date of admission: 09/29/16 11:15 Primary care physician: . No PCP Attending physician on admission: Liu Salas MD Consults: 09/29/16 12:52 Consult to Pharmacy [CONS] Routine Reason for Pharmacy Consult: Adjust Meds Renal Funct 09/29/16 20:29 Consult to Physician [CONS] Routine Comment: chest pain Consulting Provider: Douglas Felix Date Notified: 09/30/16 Time Notified: 09:30 Consult Notification Comment: notified Dr Felix, He said Dr Hannon will see her. Notified Dr Hannon Discharging clinician: Rickie Castano MD Expected date of discharge: 10/02/16
--- NOTE | 2016-10-02 11:36 | Cardiology Progress Note ---
<Becca Ayala - Last Filed: 10/02/16 11:37> Assessment and Plan - Time spent with patient Time spent with patient: Greater than 30 minutes (1) Chest pain Status: Resolved Assessment and plan: Noncardiac chest pain. Current Visit: Yes Qualifiers: Chest pain type: precordial pain Qualified Code(s): R07.2 - Precordial pain (2) Hypertension Status: Chronic Assessment and plan: Continue current plan of care Current Visit: Yes Qualifiers: Hypertension type: essential hypertension Qualified Code(s): I10 - Essential (primary) hypertension (3) Hypothyroidism Status: Chronic Assessment and plan: Continue current plan of care Current Visit: Yes Qualifiers: Hypothyroidism type: acquired Qualified Code(s): E03.9 - Hypothyroidism, unspecified (4) Dyslipidemia Status: Acute Current Visit: Yes Cardiology - PN: Subj Interval history: Patient was admitted for investigation of complaints of chest pain she had not seen cardiology before. Dr. Felix to patient to the cardiac catheterization lab for an elective heart catheterization October 01, 2016, with the following impression noted: Impression: No significant obstructive coronary disease-minimal luminal irregularities Mild to moderate distal vessel tortuosity Probably left dominant or possibly codominant coronary arterial system Normal global/regional LV systolic function, LVEF greater than 55% Moderate elevation of LVEDP, 20 mmHg Angiogram of the right femoral artery-via follow-through from the LV gram Successful Angio-Seal of the right femoral artery Plan/recommendations: The patient will have risk factors optimized. Based on this study, it appears the patient's chest pain and EKG changes are not due to fixed, obstructive coronary disease. It is possible coronnary spasm or thrombosis, but may be the EKG changes were not as specific as what was thought. The patient will be on antiplatelet medications to include aspirin indefinitely. She tolerated the procedure well without complication was returned to the telemetry unit in stable condition. Overnight, labs are stable. She has had no recurrent chest pain. Right groin is soft, free of hematoma or bruit. Distal pulses 2-3+. She is anxious for release home and her attending physician has discharged her home. She will be given a follow-up appointment Dr. Felix per his request. This will be in approximately 1-2 weeks. Cardiac discharge medications include the following: Aspirin 81 mg orally daily Metoprolol tartrate 25 mg orally twice daily Crestor 40 mg orally each evening Exam (Progress Note) - Constitutional Vitals: Period Temp Pulse Resp BP Sys/Gould Pulse Ox Last 24 Hr 96.4 F-97.9 F 47-65 12-18 95-129/47-90 93-100 Exam: General: [Appears well with no apparent distress.] [Pleasant and cooperative. ] [Appears comfortable.] HEENT: [PERRL, normocephalic, atraumatic. Mucous membranes moist. No jaundice noted. Conjunctiva moist and clear, sclerae anicteric] Neck: No JVD/HJR, no thyromegaly or lymphadenopathy noted. No carotid bruit appreciated Cardiac: [Regular rate and rhythm.] [No murmur rub or gallop.] Lungs: [Clear to auscultation without accessory muscle use to assist the respiratory pattern.] Not requiring oxygen. Abdomen: Soft, bowel sounds normoactive. Nontender and nondistended. No abdominal bruit or thrill noted. No masses noted. Musculoskeletal: No fluid collection. Decreased range of motion is noted. Extremities: Right groin soft, free of hematoma or bruit. No clubbing, cyanosis noted. [ No edema noted.] Upper extremity pulses 2+. Lower extremity pulses 2+. Capillary refill less than 3 seconds. Skin: No unusual lesions or rashes. No skin breakdown appreciated. Neuro: Awake, alert and oriented 3. Moves all extremities well without hemiparesis or paralysis. No essential tremor is appreciated. Result/EKG - Labs CBC & BMP: 10/02/16 04:01 10/02/16 04:01 Lab Results: I have reviewed the past 24 hour labs Labs: Laboratory Results - last 24 hr 10/02/16 10/02/16 04:01 04:01 WBC 4.2 RBC 4.38 Hgb 12.3 Hct 37.4 MCV 85.4 L MCH 28 MCHC 32.9 RDW 13.4 Plt Count 327 MPV 10.7 Neut % (Auto) 49.5 Lymph % (Auto) 39.0 [place] % (Auto) 9.3 Eos % (Auto) 1.0 Baso % (Auto) 0.7 Neut # (Auto) 2.1 Lymph # (Auto) 1.6 [place] # (Auto) 0.4 Eos # (Auto) 0.0 Baso # (Auto) 0.0 Immature Gran % 0.5 Nucleated RBC % 0.0 Immature Gran # 0.02 Nucleated RBCs # 0.00 Sodium 143 Potassium 4.2 Chloride 108 H Carbon Dioxide 25 Anion Gap 14.2 BUN 8 Creatinine 0.80 GFR Calculation 116 BUN/Creatinine Ratio 10.00 Glucose 93 Calculated Osmolality 282.0 Calcium 10.5 H Magnesium 2.5 H - Diagnostic Findings Procedure: Chest x-ray: report reviewed by me - EKG EKG results: interpreted by me EKG shows: sinus rhythm Quality Measures - VTE Contraindication to Pharmacological VTE Prophylaxis: High Risk of Bleeding - Stroke Symptom Onset Unknown: No Specialty Discharge - Follow Up or Referrals Follow up with: Douglas Felix MD [Physician] - (1-2 weeks) <David Hughes - Last Filed: 10/02/16 11:53> Cardiology - PN: Subj Interval history: Cardiology addendum. Chart reviewed and patient examined. Right groin soft and dry. No bruit or hematoma. Distal pulses 2+. Widely patent coronary arteries and ejection fraction 55%. Noncardiac chest pain. Patient has been reassured again. Routine groin precautions discussed. Medications as above. Office follow-up with Dr. Felix in 2 weeks Exam (Progress Note) - Constitutional Vitals: Period Temp Pulse Resp BP Sys/Gould Pulse Ox Last 24 Hr 96.4 F-98.2 F 47-65 12-18 95-129/47-90 93-100 Result/EKG - Labs CBC & BMP: 10/02/16 04:01 10/02/16 04:01 Labs: Laboratory Results - last 24 hr 10/02/16 10/02/16 04:01 04:01 WBC 4.2 RBC 4.38 Hgb 12.3 Hct 37.4 MCV 85.4 L MCH 28 MCHC 32.9 RDW 13.4 Plt Count 327 MPV 10.7 Neut % (Auto) 49.5 Lymph % (Auto) 39.0 [place] % (Auto) 9.3 Eos % (Auto) 1.0 Baso % (Auto) 0.7 Neut # (Auto) 2.1 Lymph # (Auto) 1.6 [place] # (Auto) 0.4 Eos # (Auto) 0.0 Baso # (Auto) 0.0 Immature Gran % 0.5 Nucleated RBC % 0.0 Immature Gran # 0.02 Nucleated RBCs # 0.00 Sodium 143 Potassium 4.2 Chloride 108 H Carbon Dioxide 25 Anion Gap 14.2 BUN 8 Creatinine 0.80 GFR Calculation 116 BUN/Creatinine Ratio 10.00 Glucose 93 Calculated Osmolality 282.0 Calcium 10.5 H Magnesium 2.5 H
[2016-10-02 11:51] VITALS: BP 113/54
== END 2016-10-02 13:15 | disposition home or self-care (01) | DRG 287 ==
LOC: N.ED 09:01 → SUATTDRO 11:15 → N.EDINP 11:15 → INTOOBSV 11:15 → N.TELEN 11:49
PROVIDERS: ADMIT Internal Medicine; ATTEND Internal Medicine Cardiovascular Disease
PROC: CLCCHCL (ICD-10-PCS; 2016-10-01 12:15)